=== PATIENT | female | born 1960 | race Caucasian/White ===

== ENCOUNTER 2020-10-04 11:54 | Emergency (ER) | payer BC, SELFPAY ==
[2020-10-04 12:22] VITALS: BP 147/65; PULSE 83; RESP 14; TEMP 36; O2SAT 95; BMI 34.7
--- NOTE | 2020-10-04 12:32 | HMH.EDUTC ---
[facility] Disposition Clinical Impression: Exposure to COVID-19 virus Sinusitis Qualifiers: Sinusitis location: unspecified location Chronicity: acute Recurrence: non-recurrent Qualified Code(s): J01.90 - Acute sinusitis, unspecified Disposition: Home, Self-Care Condition on Discharge: Good Instructions: Sinusitis, DI for Sinusitis, Preventing the Spread of Coronavirus Discharge Instructions Additional Instructions: Drink plenty of fluids. Take tylenol or ibuprofen for pain or fever. Take the medications as directed. Follow up with your regular doctor. GO TO THE ER FOR ANY WORSENING SYMPTOMS Prescriptions: predniSONE [Prednisone 20mg Tab] 20 mg PO BID 4 Days #8 tab Transmission Status: Received by [facility] Benzonatate [Tessalon Perle 100mg Cap] 100 mg PO TIDP PRN #30 cap PRN Reason: Cough Transmission Status: Received by [facility] Azithromycin [Z-Junior 250mg Tab*] 250 mg PO UD DOSE PK #6 tab Transmission Status: Received by [facility] Referrals: Judi Black APRN [Primary Care Provider] - Time of Disposition: 12:52 Medical Decision Making - Medical Records Medical records reviewed: No: I reviewed the patient's medical records. - Ortiz Inquiry Pt receiving controlled substance: No Vital Signs: 10/04/20 12:22 10/04/20 12:55 Temperature 96.8 F L 97.1 F L Temperature Source Tympanic Tympanic Pulse Rate 80 Pulse Rate [Right] 83 Respiratory Rate 14 16 Blood Pressure 142/46 H Blood Pressure [Right Arm] 147/65 H Blood Pressure Mean [Right Arm] 92 Blood Pressure Source [Right Arm] Automatic Cuff Blood Pressure Position Sitting Blood Pressure Position [Right Arm] Sitting 02 Sat by Pulse Oximetry 95 Oxygen Delivery Method Room Air Room Air [facility] HPI - General Stated complaint: Sinus,head ache,drainage Time Seen by Provider: 10/04/20 12:32 Mode of Arrival: Ambulatory Source of Information: Patient Limitations: No Limitations Description of Symptoms (Recalled from Triage Doc. by RN): pt thinks she has a sinus infection. it began two days ago, she has a sinus PICKENS and pressure. HEENT Symptoms (Recalled from RN notes): Yes (sinus PICKENS and pressure) Resp Symptoms (Recalled from RN notes): No Skin Symptoms (Recalled from RN notes): No MS Symptoms (Recalled from RN notes): No Functional Status (Recalled from RN notes): na - History of Present Illness Provider Complaint: She states that she has been having sinus congestion for the past 2 days. She has a scratchy sore throat and some mild upset gi symptoms also. She denies any chest pain, shortness of breath and chest tightness. She denies any known exposure to covid-19. - Related Data Previous Rx's Medication Instructions Recorded Azithromycin [Z-Junior 250mg Tab*] 250 mg PO UD DOSE PK #6 tab 10/04/20 Benzonatate [Tessalon Perle 100mg 100 mg PO TIDP PRN #30 cap 10/04/20 Cap] predniSONE [Prednisone 20mg 20 mg PO BID 4 Days #8 tab 10/04/20 Tab] Allergies Allergy/AdvReac Type Severity Reaction Status Date / Time amoxicillin Allergy Verified 10/04/20 12:26 Penicillins Allergy Verified 10/04/20 12:26 - Worker's Comp Is this a Worker's Comp case?: No [facility] History - Hepatitis A Screen Drug use history?: No High risk sexual behaviors?: No History of sexually transmitted infection?: No Currently employed?: No Childcare worker?: No Do you have indoor plumbing?: Yes Do you have electricity?: Yes Attestation statement:: This patient has been screened for Hepatitis A risk factors. I have reviewed the patient's past medical history: Yes ROS Obtained: Yes All systems reviewed & no additional complaints - Constitutional Constitutional: Reports as per HPI - Eyes Eyes: Denies eye discharge - ENT Ears, Nose, Mouth, and Throat: Reports as per HPI Physical Exam - General General appearance: alert, in no apparent distress - Head Head exam: atraumatic, normocephalic, n
[2020-10-04 12:55] VITALS: BP 142/46; PULSE 80; RESP 16; TEMP 36.2
--- NOTE | 2020-10-04 16:41 | PC.NURSE ---
spoke with pt relaying that her covid results are positive.
== END 2020-10-04 13:06 | disposition home or self-care (01) ==
PROVIDERS: Emergency Provider Nurse Practitioner Family; PCP Nurse Practitioner Family
DX: U07.1 COVID-19 (principal); J01.90 Acute sinusitis, unspecified
CPT/HCPCS: 99202; G0463; U0003

== ENCOUNTER → 2021-12-05 14:10 | Outpatient (CLI) | payer BC, SELFPAY ==
--- NOTE | 2021-12-05 14:11 | US_ITS ---
FINAL REPORT TECHNIQUE: Transvaginal ultrasound imaging of the pelvis was obtained. CLINICAL HISTORY: post menopausal bleeding FINDINGS: The uterus measures 5.7 x 3.0 x 5.4 cm. There are 2 uterine fibroids 1, in the mid uterus and the 2nd in the right lateral uterus. Mid fibroid is within the endometrium and is submucosal. The endometrium is thickened at 7 mm. Left ovary measures 1.7 cm. Right ovary measures 2.2 cm. There is a small right ovarian cyst. No free fluid is seen. IMPRESSION: Abnormally thickened endometrium. Recommend gynecologic evaluation. Reviewed, Interpreted and Dictated by Tmo Lawson MD Transcribed by Leah Knox Authenticated by Tom Lawson MD on 12/05/2021 04:17:42 PM [facility]
== END ==
PROVIDERS: PCP Nurse Practitioner Family; Visit Provider Obstetrics & Gynecology
DX: N95.0 Postmenopausal bleeding (principal)
CPT/HCPCS: 76830

== ENCOUNTER → 2021-12-24 10:15 | Outpatient (CLI) | payer BC, SELFPAY ==
[2021-12-24 10:54] LABS: Basophils # 0.1 K/mm3 (0-0.2); Basophils % 1.6 % (0.1-2.0); Eosinophils # 0.1 K/mm3 (0.0-0.4); Eosinophils % 1.7 % (0.1-12.0); Hematocrit 43.1 % (37.0-47.0); Hemoglobin 14.2 g/dL (12.2-16.2); Lymphocytes # 1.8 K/mm3 (0.7-4.5); Lymphocytes % 29.5 % (10-50); Mean Corpuscular Hemoglobin 31.2 pg (27.0-31.2); Mean Corpuscular Volume 94.4 fl (81-99); Mean Platelet Volume 8.5 fl (7.4-10.4); Monocytes # 0.4 K/mm3 (0.1-1.0); Monocytes % 6.1 % (1.7-9.3); Neutrophils # 3.8 K/mm3 (1.8-7.8); Neutrophils % 61.1 % (37.0-80.0); Platelet Count 301 K/mm3 (142-424); Red Blood Count 4.56 M/mm3 (4.20-5.40); Red Cell Distribution Width 13.6 % (11.5-17.5); White Blood Count 6.2 K/mm3 (4.8-10.8)
[2021-12-24 11:17] LABS: Alanine Aminotransferase 37 U/L (12-78); Albumin Level 4.5 g/dl (3.5-5.0); Albumin/Globulin Ratio 1.7 (1.1-1.8); Alkaline Phosphatase 59 U/L (38-126); Anion Gap 13.2 mEq/L (5-15); Aspartate Amino Transferase 34 U/L (14-36); Bilirubin,Total 0.5 mg/dl (0.2-1.3); Blood Urea Nitrogen 13 mg/dl (7-17); Carbon Dioxide 27 mmol/L (22.0-30.0); Chloride 108 mmol/L (98-107); Estimated Glomerular Filt Rate 63 ml/min (>60); GFR (African American) 77 ML/MIN (>60); Globulin 2.7 g/dL (1.3-3.2); Glucose 129 mg/dl (74-100); Potassium 4.2 mmoL/L (3.5-5.1); Sodium 144 mmol/L (136-145); Total Protein,Serum 7.2 g/dl (6.3-8.2)
[2021-12-24 11:18] LABS: HCG Qualitative, Serum Negative (Negative)
[2021-12-24 11:55] LABS: Amphetamine/Metha Screen,Urine Negative ng/ml (<1000); Benzodiazepines Screen,Urine Negative ng/ml (<200)
[2021-12-24 11:56] LABS: Barbiturates Screen,Urine Negative ng/ml (<200)
[2021-12-24 11:57] LABS: Cannabinoid Screen,Urine Negative ng/ml (<50); Cocaine Screen,Urine Negative ng/ml (<300)
[2021-12-24 11:58] LABS: Methadone Screen,Urine Negative ng/ml (<300)
[2021-12-24 11:59] LABS: Opiate Screen,Urine Negative ng/ml (<300); Phencyclidine Screen,Urine Negative ng/ml (<25)
== END ==
PROVIDERS: Visit Provider Obstetrics & Gynecology
DX: Z01.818 Encounter for other preprocedural examination (principal); Z11.52 Encounter for screening for COVID-19; N92.0 Excessive and frequent menstruation with regular cycle; N95.0 Postmenopausal bleeding
CPT/HCPCS: 36415; 80053; 80305; 84703; 85025; C9803; U0003; U0005

== ENCOUNTER 2021-12-26 06:15 | Day surgery (SDC) | payer BC, SELFPAY ==
[2021-12-23 10:05] VITALS: BMI 37.9
[2021-12-26] VITALS (12 sets, daily range): BP systolic 86–147; BP diastolic 44–82; PULSE 52–80; RESP 12–18; TEMP 36.6–43; O2SAT 93–98
[2021-12-26 07:11] LABS: POC Glucose,Bedside 109 (70-110)
--- NOTE | 2021-12-26 07:20 | HMH.ANESCL ---
[facility] Anesthesia Checklist - Patient Identification Patient Identification: Arm Band, Verbal (Name & ) - Structural Data Admitted From: Home Planned Operative Procedure/s: Hysteroscopy D&C Consent for Planned Operative Procedure(s) Verified: Yes Verified Documents: Surgical Consent - NPO Status Verified Time NPO: 00:00 - Chart Verification Results Verified: CBC - Additional verifications Anesthesia Reactions: No Hx Blood Transfusions: No Blood Transfusion Reaction: No - Airway Assessment C-Spine Mobility Assessed: Yes TMJ Mobility Assessed: Yes Dentition: Good Dentition - Neurological Assessment Level of Consciousness: Awake, Alert, Appropriate - Anesthesia Plan ASA Class: III Anesthesia Type: General [facility] History I have reviewed the patient's past medical history: Yes Medical History: Reports:: Diabetes Mellitus Type 2 Denies:: Cancer, Diabetes Mellitus Type 1, Internal Pacemaker, MRSA, Seizures *Have you ever received a pneumonia vaccine?: No *Have you received a flu vaccine this season?: No Other Medical History: Denies: Blood Transfusion Reaction Anesthesia experience/problems:: none Other Surgeries: No: Pacemaker Amputation: No Fractures: No - *Social History Last grade of school completed: Some college Smoking Status: Former smoker Alcohol Intake: never Substance Use Type: denies use *Occupational Status:: other, retired Housing: house Household Members: none *Travel in the last 8 weeks: None Family Hx:: Cancer, Diabetes, Heart Attack, Hypertension, Kidney Disease, Substance abuse, Alcoholism, Mental illness, Asthma
--- NOTE | 2021-12-26 09:13 | HMH.ANESI ---
[facility] Anesthesia Record Part I Intake, IV Amount: 800 Estimated blood loss (mL): 0 Urine output (mL): 0 Blood Pressure: 101/58 SaO2: 94 Pulse Rate: 57 Respiratory Rate: 12 Temperature: 98.1 F Patient is:: Awake, Stable Stable to PACU at:: 09:10
--- NOTE | 2021-12-26 10:51 | HMH.ANESII ---
[facility] Anesthesia Record Part II Discharge Time: 09:50 Destination: Surgical Day Care (OP Surgery) PACU nurse assessment reviewed?: Yes Patient Condition:: Good Anesthesia Complications:: None Swallowing reflex intact?: Yes Cyanosis?: No Blood Pressure: 109/57 Pulse Rate: 54 Temperature: 98.1 F Mental Status: Alert & Oriented Pain level:: 0 Nausea and/or vomitting:: None Intake, IV Amount: 0
--- NOTE | 2021-12-26 16:06 | P.OP_ITS ---
Date of procedure: 12/26/21 Pre-op Diagnosis:: 1. Post-menopausal bleeding 2. Thickened endometrium 3. Uterine fibroids Post-op Diagnosis:: same Procedure performed:: Myosure D&C hysteroscopy Surgeon:: Amy Reina MD OUTSIDE INSTALLER APPRENTICE:: Moises Giron Anesthesia: GETA Estimated blood loss (mL): 5 Operative findings:: 2 large cavitary masses in uterus; one anterior wall and one posterior wall Operative note:: The patient was taken to the OR and general anesthesia administered without difficulty. She was prepped/draped in lithotomy position. The cervix was dilated and hysteroscopic evaluation performed. 2 large masses were visualized within the endometrial cavity; the visual appearance of these masses were consistent with fibroids. The Myosure was used to sample the endometrium from all aspects of the cavity. Attempt was made to completely excise the masses but the solid nature of the tissue prescluded successful removal of the entire mass. Portions of the masses were removed for tissue diagnosis; all pathology specimens were sent together. Once this was completed, all instruments were removed from her uterus and vagina. She was taken out of lithotomy position, awakened from anesthesia and taken to the PACU in stable condition. All sponge, needle & instrument counts correct. EBL <10cc. Condition: stable Disposition: PACU Specimens:: endometrium Complications:: none
== END 2021-12-26 10:30 | disposition home or self-care (01) ==
LOC: OR 06:17
PROVIDERS: PCP Nurse Practitioner Family; Visit Provider Obstetrics & Gynecology
PROC: (CPT 58563; principal; 2021-12-26 08:00)
DX: N95.0 Postmenopausal bleeding (principal); R93.89 Abnormal findings on diagnostic imaging of other specified body structures; D25.9 Leiomyoma of uterus, unspecified; E11.9 Type 2 diabetes mellitus without complications; Z83.3 Family history of diabetes mellitus; Z82.49 Family history of ischemic heart disease and other diseases of the circulatory system; Z84.1 Family history of disorders of kidney and ureter; Z80.9 Family history of malignant neoplasm, unspecified; Z81.1 Family history of alcohol abuse and dependence; Z81.8 Family history of other mental and behavioral disorders; E66.9 Obesity, unspecified; Z68.37 Body mass index [BMI] 37.0-37.9, adult
CPT/HCPCS: 58563; 82962; 96374; J2405

== ENCOUNTER 2022-08-08 08:21 | Day surgery (SDC) | payer BC, SELFPAY ==
[2022-08-04 15:03] VITALS: BMI 38.2
[2022-08-08 08:55] VITALS: BP 118/77; PULSE 75; RESP 18; TEMP 36.5; O2SAT 95
[2022-08-08 09:13] LABS: POC Glucose,Bedside 105 (70-110)
[2022-08-08 09:49] VITALS: BP 117/63; PULSE 70; RESP 18; O2SAT 95
[2022-08-08 09:54] VITALS: BP 124/74; PULSE 70; RESP 18; O2SAT 99
[2022-08-08 09:59] VITALS: BP 119/73; PULSE 73; RESP 18; O2SAT 99
[2022-08-08 10:03] VITALS: BP 115/71; PULSE 66; RESP 18; O2SAT 99
[2022-08-08 10:15] VITALS: BP 126/74; PULSE 77; RESP 17; TEMP 36.5; O2SAT 94
== END 2022-08-08 10:18 | disposition home or self-care (01) ==
PROVIDERS: PCP Family Medicine; Visit Provider Ophthalmology
PROC: (CPT 66984; principal; 2022-08-08 10:30)
DX: E11.36 Type 2 diabetes mellitus with diabetic cataract (principal); H25.811 Combined forms of age-related cataract, right eye; Z79.899 Other long term (current) drug therapy
CPT/HCPCS: 66984; 82962; V2632

== ENCOUNTER → 2022-09-14 11:09 | Outpatient (CLI) | payer BC, SELFPAY ==
[2022-09-14 19:21] LABS: Creatinine,Urine Random 146 mg/dL (Not Estab.); Microalbumin/Creatinine Ratio 9.7
== END ==
PROVIDERS: PCP Family Medicine; Visit Provider Family Medicine
DX: E11.9 Type 2 diabetes mellitus without complications (principal); Z79.84 Long term (current) use of oral hypoglycemic drugs
CPT/HCPCS: 82043; 82570

== ENCOUNTER 2022-12-06 08:53 | Day surgery (SDC) | payer BC, SELFPAY ==
[2022-11-21 14:02] VITALS: BMI 38.2
[2022-12-06 09:32] VITALS: BP 148/80; PULSE 74; RESP 16; TEMP 36.3; O2SAT 94
[2022-12-06 09:45] LABS: POC Glucose,Bedside 113 (70-110)
--- NOTE | 2022-12-06 09:49 | P.PN_ITS ---
[facility] Disclaimer: The information contained in this section may have been updated after the patient was seen, as this information can be updated by other users. Medical History Allergies Diabetes mellitus Hyperlipidemia Hypertension Obesity, Class II, BMI 35-39.9 Polyp at cervical os Postmenopausal bleeding Thickened endometrium Uterine fibroid Surgical History History of hysteroscopy Family History Mother Hyperlipidemia Hypertension Father Cancer Sister Hyperlipidemia Hypertension Brother Cancer Other Family history of TIAs Family history of myocardial infarction Social History Smoking Status: Former smoker how long ago did patient quit smokin yrs alcohol intake: never substance use type: denies use current occupational status: retired Travel in the last 8 weeks: None household members: none housing: house lives independently: Yes marital status: single education level: vocational current occupational exposures/hazards: No caffeine: Yes do you feel safe at home: Yes victim of physical abuse: No victim of emotional abuse: No victim of sexual abuse: No would you like helpful sources: No [facility] Anesthesia Checklist Patient Identification Patient Identification: Arm Band and Verbal (Name & ) Structural Data Admitted From: Home Planned Operative Procedure/s: Colonoscopy Consent for Planned Operative Procedure(s) Verified: Yes NPO Status Verified Time NPO: 00:00 Additional verifications Anesthesia Reactions: No Hx Blood Transfusions: No Blood Transfusion Reaction: No Airway Assessment C-Spine Mobility Assessed: Yes TMJ Mobility Assessed: Yes Dentition: Good Dentition Neurological Assessment Level of Consciousness: Awake Hx Seizures: No Numbness or tingling in extremities: No Anesthesia Plan Anesthesia Risk discussed: Yes Anesthesia Plan: Verified ASA Class: III Anesthesia Type: MAC
[2022-12-06 10:25] VITALS: O2SAT 97
[2022-12-06 10:49] VITALS: BP 111/72; PULSE 76; RESP 18; TEMP 36.3; O2SAT 98
[2022-12-06 10:59] VITALS: BP 108/60; PULSE 79; RESP 16
[2022-12-06 11:09] VITALS: BP 101/61; PULSE 82; RESP 17
[2022-12-06 11:19] VITALS: BP 103/67; PULSE 73; RESP 16; TEMP 36.3; O2SAT 93
--- NOTE | 2022-12-06 12:18 | HMH.SCOPE ---
Procedure: Date: 12/06/22 Patient Date of :: 1960 Procedure Performed:: Colonoscopy Indications:: Positive cologuard test. The patient has a history of colon cancer in a first degree relative (brother) Performing Provider:: Sathya Hall MD Referring Provider:: Wilbert Branch MD Sedation:: See accounts receivable manager:: After placing the patient in the left lateral decubitus position, the colonoscopy was gently inserted into the rectum and under direct visualization advanced to the cecum which was identified by transillumination in the right lower quadrant, identification of the ileocecal valve, appendiceal orifice, and cecal strap. Color, texture, mucosa, and anatomy of the colon were carefully examined with the scope. Findings:: Anal canal: normal Rectum: internal hemorrhoids Sigmoid colon: two sessile polyps less than 5 mm in size. Removed with cold snare polypectomy. Descending colon: sessile polyp 5 mm in size and sessile polyp less than 5 mm in size. Removed with cold snare polypectomy Splenic flexure: normal Transverse colon: normal without polyps or inflammatory changes Hepatic flexure: normal Ascending colon: normal without polyps or inflammatory changes Cecum: normal Terminal ileum: not visualized Impression: Polyps of descending colon and sigmoid colon Recommendations:: Await pathology results Repeat colonoscopy in 3 years Complications:: None Estimated blood obtained (mL): 0
== END 2022-12-06 11:19 | disposition home or self-care (01) ==
PROVIDERS: PCP Family Medicine; Visit Provider Internal Medicine
PROC: 0DJD8ZZ Inspection of Lower Intestinal Tract, Via Natural or Artificial Opening Endoscopic (ICD-10-PCS; CPT 45378; principal; 2022-12-06 10:00)
DX: R19.5 Other fecal abnormalities (principal); Z80.0 Family history of malignant neoplasm of digestive organs; K64.8 Other hemorrhoids; D12.4 Benign neoplasm of descending colon; D12.5 Benign neoplasm of sigmoid colon; E11.9 Type 2 diabetes mellitus without complications; Z79.899 Other long term (current) drug therapy
CPT/HCPCS: 45378; 82962; J2704

== ENCOUNTER → 2022-12-26 10:33 | Outpatient (CLI) | payer BC, SELFPAY ==
--- NOTE | 2022-12-26 11:24 | US_ITS ---
PROCEDURE INFORMATION: Exam: US Right Breast, Complete MG Bilateral Diagnostic Breast Tomosynthesis MG Radiologist Consultation Exam date and time: 12/26/2022 10:41 AM Age: 62 years old Clinical indication: Right breast palpable lump; Abnormal findings on imaging; Additional info: Screening/palpable lump The mammogram predictive maintenance technician felt a palpable lump in the right upper outer quadrant at time of imaging. TECHNIQUE: Imaging protocol: Complete ultrasound of all four quadrants of the right breast and the retroareolar regions, including ultrasound of the axilla when performed. Bilateral Diagnostic tomosynthesis and 2D mammography including computer-aided detection (CAD) when performed. Unilateral or bilateral exam. COMPARISON: No relevant prior studies available. FINDINGS: MAMMOGRAPHY: Breast density: The breasts are heterogeneously dense, which may obscure small masses. Mass: There is a partially obscured, highly suspicious spiculated, irregular mass measuring at least 2.5 cm with associated architectural distortion in the posterior right upper outer quadrant with associated extensive, highly suspicious segmental pleomorphic calcifications. The calcifications extend to the central right breast, right upper inner quadrant and retroareolar region, spanning an area measuring up to 9 cm in AP dimension and 10 cm in transverse dimension. Architectural distortion: No suspicious distortion. Calcifications: See above. No suspicious left breast calcifications identified. Asymmetric density: None. Skin thickening: None. Axillary adenopathy: Extensive right axillary adenopathy is seen with conglomerate of abnormal lymph nodes versus solitary abnormal lymph node measuring at least 6 cm in craniocaudal dimension.. Probable abnormal 0.8 cm intramammary lymph node in the right axillary tail, anterior to the pectoralis muscle on MLO projection. ULTRASOUND: In right upper outer quadrant 10 o'clock position 3 cm from the nipple there is a highly suspicious, irregular spiculated hypoechoic solid mass with prominent posterior shadowing measuring 3.1 x 4.2 x 3.0 cm. Dominant abnormal right axillary lymph node measures up to the 4.8 cm in length with abnormal thickened cortex. IMPRESSION: Highly suspicious 4.2 cm spiculated solid mass in the 10 o'clock position of the right breast with associated architectural distortion, worrisome for primary breast malignancy in the region of the patient's palpable lump. Highly suspicious calcifications also extend from the mass to the central breast, retroareolar region and medial right breast. Right axillary adenopathy noted. Recommend right breast ultrasound-guided core needle biopsy of the 4.2 cm mass and dominant 0.8 cm abnormal right axillary lymph node. Also recommend post biopsy diagnostic mammogram to confirm biopsy clip placement at both biopsy sites. Dedicated breast MRI would also be helpful given extent of disease in the retroareolar region and multiple quadrants of the right breast. No mammographic evidence of malignancy in the left breast. ASSESSMENT: BI-RADS Category 5: Highly Suggestive of Malignancy
== END ==
PROVIDERS: PCP Family Medicine; Visit Provider Family Medicine
DX: R92.8 Other abnormal and inconclusive findings on diagnostic imaging of breast (principal)
CPT/HCPCS: 76641; 77062; 77066; G0279

== ENCOUNTER → 2023-01-08 09:51 | Outpatient (CLI) | payer BC, SELFPAY ==
--- NOTE | 2023-01-08 09:51 | US_ITS ---
FINAL REPORT CLINICAL HISTORY: right breast biopsy -- dr foster-- 1000, right axillary adenopathy FINDINGS: ULTRASOUND-GUIDED RIGHT AXILLARY CORE BIOPSY TECHNIQUE: Limited images were obtained to localize region of interest. The right axilla was prepped in a routine sterile fashion and locally anesthetized with 1% lidocaine. Standard written informed consent was obtained. The biopsy needle was positioned within the outer periphery of the lesion. A total of 2 passes were made with a 18 gauge core biopsy needle. A biopsy marker clip was deployed in satisfactory position. Postbiopsy mammogram showed postbiopsy changes with clip in satisfactory position. Procedure was well tolerated . CONCLUSION: 1. Technically successful ultrasound guided core biopsy of enlarged right axillary lymph node 2. Biopsy marker clip deployed Authenticated and ERN
--- NOTE | 2023-01-08 09:54 | MM_ITS ---
FINAL REPORT CLINICAL HISTORY: post us bx, abnormal mammogram FINDINGS: MAMMOGRAM RIGHT TECHNIQUE: Standard digital 2-D views COMPARISON: 12-26-22 DENSITY: There are scattered areas of fibroglandular density FINDINGS: Post biopsy marker clip is noted to be in satisfactory position within asymmetric density associated with extensive suspicious calcifications in the lateral right breast at 9-10:00. Biopsy marker clip is also noted within enlarged lymph nodes of the lower right axilla.. Postbiopsy changes are noted. IMPRESSION: Biopsy marker clips in good position RECOMMENDATION: Pending histopathology evaluation Authenticated and ERN
--- NOTE | 2023-01-08 10:50 | US_ITS ---
FINAL REPORT CLINICAL HISTORY: Right breast mass FINDINGS: ULTRASOUND-GUIDED RIGHT BREAST CORE BIOPSY TECHNIQUE: Limited images were obtained to localize region of interest. The right breast was prepped in a routine sterile fashion and locally anesthetized with 1% lidocaine. Standard written informed consent was obtained. The biopsy needle was positioned within the outer periphery of the lesion at 10:00. A total of 4 passes were made with a 16 gauge core biopsy needle. A biopsy marker clip was deployed in satisfactory position. Postbiopsy mammogram showed postbiopsy changes with clip in satisfactory position. Procedure was well tolerated . CONCLUSION: 1. Technically successful ultrasound guided core biopsy of right breast mass as above. 2. Biopsy marker clip deployed Authenticated and ERN
== END ==
LOC: RAD 09:51
PROVIDERS: PCP Family Medicine; Visit Provider Family Medicine
DX: R92.8 Other abnormal and inconclusive findings on diagnostic imaging of breast (principal); N63.10 Unspecified lump in the right breast, unspecified quadrant
CPT/HCPCS: 10005; 19083; 77065

== ENCOUNTER 2024-06-06 10:12 | Emergency (ER) | payer MEDICARE, SELFPAY ==
[2024-06-06 10:50] VITALS: BP 127/73; PULSE 100; RESP 20; TEMP 36.9; O2SAT 96; BMI 36.9
--- NOTE | 2024-06-06 11:30 | EXP.UTC ---
Discharge Plan Disposition Patient Disposition: Home, Self-Care Condition: Good Prescriptions Prescriptions: New azithromycin [Zithromax Z-Junior] 250 mg tablet See Rx Instructions .ROUTE .COMPLEX 5 Days Qty: 6 0RF Rx Instructions: For 250 mg dose pack: take 500 mg today (day 1), then 250 mg for 4 days (days 2-5) No Action cetirizine 10 mg tablet 10 mg PO DAILY Patient Comments: TAKE 1 TABLET BY MOUTH ONCE DAILY letrozole 2.5 mg tablet 2.5 mg PO DAILY Patient Comments: TAKE 1 TABLET BY MOUTH EVERY DAY albuterol sulfate 90 mcg/actuation HFA aerosol inhaler 2 puff inhalation Q6H PRN (Reason: shortness of breath or wheezing) Qty: 6.7 2RF ribociclib 600 mg/day (200 mg x 3) tablet 200 mg PO TID Rx Instructions: PO PER PKG DIR Ozempic 0.25 mg or 0.5 mg (2 mg/3 mL) pen injector 0.25 mg SQ WEEKLY Qty: 3 3RF Rx Instructions: for 4 weeks montelukast 10 mg tablet 10 mg PO PM 90 Days Qty: 90 1RF (DME) Accu-Chek Guide test strips Strip See Rx Instructions .ROUTE .COMPLEX Qty: 50 5RF Dose Instruction: USE 1 TEST STRIP ONCE DAILY FOR DIABETES Rx Instructions: USE 1 TEST STRIP ONCE DAILY FOR DIABETES (DME) lancets [Accu-Chek Fastclix Lancet Drum] Misc See Rx Instructions .ROUTE .MEDSUPPLY Qty: 200 5RF Rx Instructions: once a day (DME) pen needle, diabetic [BD Ultra-Fine Mini Pen Needle] 31 gauge x 3/16 needle See Rx Instructions .ROUTE .MEDSUPPLY Qty: 50 0RF Rx Instructions: need needles for her Ozempic injection metoprolol tartrate 100 mg tablet 100 mg PO DAILY Patient Comments: PLEASE SEE ATTACHED FOR DETAILED DIRECTIONS cholecalciferol (vitamin D3) [Vitamin D3] 25 mcg (1,000 unit) Capsule 25 mcg PO DAILY doxazosin 4 mg tablet 4 mg PO DAILY Rx Instructions: TAKE 1 TABLET BY MOUTH EVERY DAY ascorbic acid (vitamin C) 1,000 MG tablet 1,000 mg PO DAILY vitamin B complex 1 EACH tablet 1 each PO DAILY Referrals Follow up/Referrals: Jack Branch MD [Primary Care Provider] - See instructions Activity Restrictions/Add. Instructions Additional Instructions/Restrictions: *Monitor Temp, Over the counter Motrin or Tylenol as directed/as needed Tylenol every 4 hours and Motrin every 6 hours (as long as your family doctor has told you that you can take it) for fever or pain. and straight to ER if unable to lower temp less than 101.0 after medication given *Warm salt water gargles may help to soothe the throat *Throat Lozenges? *Warm fluids like tea with honey may help to soothe the throat? *Sleep elevated *Humidifier/Vaporizer Follow up IMMEDIATELY for new or worsening symptoms or no Noticeable improvement over the next 48-72 hours. 911 for difficulty breathing or swallowing Clinical Impressions Clinical Impression: Sinusitis Instructions Patient Instructions: DI for Sinusitis, Sinusitis Print Language Print Language: Belarusian Discharge ED Provider: Jackie Jiang [facility] General Stated complaint: sore throat, bilateral ear pain Mode of Arrival: Ambulatory Source of Information: Patient Limitations: No Limitations Time Seen by Provider: 06/06/24 11:30 Description of Symptoms (Recalled from Triage Doc. by RN): PATIENT C/O SINUS PRESSURE/DRAINAGE AND COUGH THAT STARTED YESTERDAY AFTERNOON HEENT Symptoms (Recalled from RN notes): Yes Resp Symptoms (Recalled from RN notes): Yes Skin Symptoms (Recalled from RN notes): No MS Symptoms (Recalled from RN notes): No Functional Status (Recalled from RN notes): WNL History of Present Illness Provider Complaint: Patient states that she has been having sinus problems on and off and pressure in her ears worse since yesterday states the pain and pressure is behind her eyes and feels like it does when she has sinus infection Related Data Home Medications ?Medication ?Instructions ?Recorded ?Confirmed cetirizine 10 mg tablet 10 mg PO DAILY Allergy symptoms 11/29/21 06/06/24 ascorbic acid (vitamin C) 1,000 mg 1,000 mg PO DAILY Supplement 12/26/21 06/06/24 tablet vitamin B complex 1 each PO DAILY Supplement 12/26/21 06/06/24 letrozole 2.5 mg tablet 2.5 mg PO DAILY 02/05/24 06/06/24 ribociclib 600 mg/day (200 mg x 3) 200 mg PO TID 03/10/24 06/06/24 tablets cholecalciferol (vitamin D3) 25 25 mcg PO DAILY 06/06/24 06/06/24 mcg (1,000 unit) capsule (Vitamin D3) doxazosin 4 mg tablet 4 mg PO DAILY 06/06/24 06/06/24 metoprolol tartrate 100 mg tablet 100 mg PO DAILY 06/06/24 06/06/24 Previous Rx's ?Medication ?Instructions ?Recorded montelukast 10 mg tablet 10 mg PO PM Allergy symptoms 90 02/29/24 days #90 tabs semaglutide 0.25 mg or 0.5 mg (2 0.25 mg (0.368 mL) SQ WEEKLY #3 mL 03/11/24 mg/3 mL) subcutaneous pen injector (Fierce & Frugal) blood sugar diagnostic (Accu-Chek #50 ea 05/01/24 Guide test strips) lancets (Accu-Chek Fastclix Lancet #200 ea 05/01/24 Drum) pen needle, diabetic 31 gauge x #50 ea 05/02/24 3/16 (BD Ultra-Fine Mini Pen Needle) albuterol sulfate 90 mcg/actuation 2 puff inhalation Q6H PRN 05/08/24 aerosol inhaler shortness of breath or wheezing #6.7 grams azithromycin 250 mg tablet See Rx Instructions PO .COMPLEX 5 06/06/24 (Zithromax Z-Junior) days #6 tabs Allergies Allergy/AdvReac Type Severity Reaction Status Date / Time amoxicillin Allergy Hives Verified 06/06/24 11:03 cephalexin [From Keflex] Allergy Rash Verified 06/06/24 11:03 Penicillins Allergy Hives Verified 06/06/24 11:03 doxycycline AdvReac Nausea Verified 05/08/24 14:23 Worker's Comp Is this a Worker's Comp case?: No [facility] Disclaimer: The information contained in this section may have been updated after the patient was seen, as this information can be updated by other users. Medical History Hypertension Hyperlipidemia Allergies Diabetes mellitus Thickened endometrium Uterine fibroid Polyp at cervical os Obesity, Class II, BMI 35-39.9 Postmenopausal bleeding Surgical History History of total mastectomy of right breast History of hysteroscopy Family History Mother Hyperlipidemia Hypertension Father Cancer lung Sister Hyperlipidemia Hypertension Brother Cancer colon cancer Other Family history of TIAs Family history of myocardial infarction Social History Smoking Status: Former smoker how long ago did patient quit smokin yrs alcohol intake: never substance use type: denies use current occupational status: retired Travel in the last 8 weeks: None household members: none housing: house lives independently: Yes marital status: single education level: vocational current occupational exposures/hazards: No caffeine: Yes do you feel safe at home: Yes victim of physical abuse: No victim of emotional abuse: No victim of sexual abuse: No would you like helpful sources: No ROS Obtained: Yes All systems reviewed & no additional complaints except as documented and Yes Systems reviewed as appropriate & no additional complaints except as documented Constitutional Constitutional: Reports system reviewed and no additional complaints, except as documented and Reports as per HPI ENT Ears, Nose, Mouth, and Throat: Reports system reviewed and no additional complaints, except as documented, Reports as per HPI, Reports sinus pain and Reports sinus pressure Cardiovascular Cardiovascular: Reports system reviewed and no additional complaints, except as documented and Reports as per HPI Respiratory Respiratory: Reports system reviewed and no additional complaints, except as documented and Reports as per HPI Gastrointestinal Gastrointestingal: Reports system reviewed and no additional complaints, except as documented and as per HPI Physical Exam General General appearance: alert and in no apparent distress Expanded ENT Exam TM/Canal exam: Right TM: erythema and Bilateral TM: bulging Nose exam: Present sinus tenderness Respiratory Respiratory exam: Present normal lung sounds bilaterally; Absent respiratory distress or wheezes Cardiovascular Cardiovascular exam: Present regular rate, normal rhythm and normal heart sounds Neurological Exam Neurological exam: Present alert, oriented X3 and normal gait Medical Decision Making Medical Records Screening: Per USPSTF and CDC recommendations, given the prevalence of disease in our region, it is our hospital?s policy to screen for HIV and viral Hepatitis for all patients aged 18 and over and those with ongoing risk factors. Ortiz Inquiry Pt receiving controlled substance: No Ortiz was queried for this patient: No Vital Signs: 06/06/24 10:50 Temperature 98.4 F Temperature Source Oral Pulse Rate [Left Brachial] 100 H Respiratory Rate 20 Blood Pressure [Left Arm] 127/73 Blood Pressure Mean [Left Arm] 91 Blood Pressure Source [Left Arm] Automatic Cuff Blood Pressure Position [Left Arm] Sitting 02 Sat by Pulse Oximetry 96 Oxygen Delivery Method Room Air Medical Decision Narrative: Patient states that she has taken azithromycin in the past without complications and reactions
[2024-06-06 11:50] VITALS: BP 127/73; PULSE 100; RESP 20; TEMP 36.9; O2SAT 96
== END 2024-06-06 11:53 | disposition home or self-care (01) ==
PROVIDERS: Emergency Provider Nurse Practitioner; PCP Family Medicine
DX: J01.90 Acute sinusitis, unspecified (principal)
CPT/HCPCS: 99213; G0381

== ENCOUNTER 2024-10-23 10:35 | Outpatient (CLI) | payer MEDICARE, SELFPAY ==
[2024-10-23 17:48] LABS: Basophils % 1.9 % (0.1-2.0); Eosinophils % 1.4 % (0.1-12.0); Hematocrit 36.7 % (37.0-47.0); Hemoglobin 12.3 g/dL (12.2-16.2); Lymphocytes # 0.5 K/mm3 (0.7-4.5); Lymphocytes % 21.9 % (10-50); Mean Corpuscular HGB Conc 33.5 g/dL (31.8-35.4); Mean Corpuscular Hemoglobin 34.2 pg (27.0-31.2); Mean Corpuscular Volume 101.9 fl (81-99); Mean Platelet Volume 9.8 fl (7.4-10.4); Monocytes # 0.2 K/mm3 (0.1-1.0); Monocytes % 11.4 % (1.7-9.3); Neutrophils # 1.3 K/mm3 (1.8-7.8); Neutrophils % 62.9 % (37.0-80.0); Platelet Count 148 K/mm3 (142-424); Red Cell Distribution Width 15.7 % (11.5-17.5); White Blood Count 2.1 K/mm3 (4.8-10.8)
[2024-10-23 18:06] LABS: Creatinine,Urine Random 125 mg/dL (Not Estab.)
[2024-10-23 18:23] LABS: Microalbumin < 6.000 mg/L (0-16.7)
[2024-10-23 18:56] LABS: Alanine Aminotransferase 24 U/L (12-78); Albumin Level 4.6 g/dl (3.5-5.0); Albumin/Globulin Ratio 1.7 (1.1-1.8); Alkaline Phosphatase 66 U/L (38-126); Anion Gap 13.3 mEq/L (5-15); Aspartate Amino Transferase 31 U/L (14-36); Bilirubin,Total 0.5 mg/dl (0.2-1.3); Blood Urea Nitrogen 14 mg/dl (7-17); Calcium 9.8 mg/dl (8.4-10.2); Carbon Dioxide 25 mmol/L (22.0-30.0); Chloride 107 mmol/L (98-107); Chol/HDL Ratio 2.5 (1-3.5); Cholesterol 169 mg/dl (140-200); Estimated Glomerular Filt Rate 56 ml/min (>60); GFR (African American) 67 ML/MIN (>60); Globulin 2.7 g/dL (1.3-3.2); Glucose 97 mg/dl (74-100); HDL Cholesterol 67 mg/dl (40-60); Potassium 4.3 mmoL/L (3.5-5.1); Sodium 141 mmol/L (136-145); Total Protein,Serum 7.3 g/dl (6.3-8.2); Triglycerides 99 mg/dl (30-150); VLDL Cholesterol 20 mg/dL (0-40)
[2024-10-23 19:07] LABS: Direct LDL Cholesterol 67.63 mg/dL (100-129)
[2024-10-23 19:23] LABS: Hemoglobin A1C 5.4 % (4.0-6.0)
[2024-10-23 19:55] LABS: HIV Combo NEGATIVE (Negative)
[2024-10-23 20:02] LABS: Hepatitis C Ab Qual. W/ RFX NEGATIVE (Negative)
== END 2024-10-23 23:59 | disposition home or self-care (01) ==
LOC: LAB.DROPOF 10-24 13:30
PROVIDERS: PCP Family Medicine; Visit Provider Family Medicine
DX: I10 Essential (primary) hypertension (principal); E11.9 Type 2 diabetes mellitus without complications; E78.5 Hyperlipidemia, unspecified; Z11.4 Encounter for screening for human immunodeficiency virus [HIV]; Z11.59 Encounter for screening for other viral diseases
CPT/HCPCS: 80053; 80061; 82043; 82570; 83036; 85025; 86803; 87389

== ENCOUNTER 2024-11-20 11:10 | Outpatient (CLI) | payer MEDICARE, SELFPAY ==
[2024-11-20 17:19] LABS: Basophils % 1.3 % (0.1-2.0); Eosinophils % 1.3 % (0.1-12.0); Hematocrit 35.8 % (37.0-47.0); Hemoglobin 12.4 g/dL (12.2-16.2); Lymphocytes # 0.5 K/mm3 (0.7-4.5); Lymphocytes % 22.5 % (10-50); Mean Corpuscular HGB Conc 34.6 g/dL (31.8-35.4); Mean Corpuscular Hemoglobin 34.9 pg (27.0-31.2); Mean Corpuscular Volume 100.8 fl (81-99); Monocytes # 0.3 K/mm3 (0.1-1.0); Monocytes % 13.7 % (1.7-9.3); Neutrophils # 1.4 K/mm3 (1.8-7.8); Neutrophils % 60.8 % (37.0-80.0); Platelet Count 151 K/mm3 (142-424); Red Blood Count 3.55 M/mm3 (4.20-5.40); Red Cell Distribution Width 15.1 % (11.5-17.5); White Blood Count 2.3 K/mm3 (4.8-10.8)
[2024-11-20 17:53] LABS: Chloride 107 mmol/L (98-107); Potassium 4.4 mmoL/L (3.5-5.1); Sodium 138 mmol/L (136-145)
[2024-11-20 17:56] LABS: Anion Gap 10.4 mEq/L (5-15); Blood Urea Nitrogen 13 mg/dl (7-17); Carbon Dioxide 25 mmol/L (22.0-30.0); Estimated Glomerular Filt Rate 50 ml/min (>60); GFR (African American) 60 ML/MIN (>60)
[2024-11-20 17:57] LABS: Calcium 10.2 mg/dl (8.4-10.2); Glucose 84 mg/dl (74-100)
[2024-11-20 23:02] LABS: Hemoglobin A1C 5.3 % (4.0-6.0)
== END 2024-11-20 23:59 | disposition home or self-care (01) ==
LOC: LAB.DROPOF 11-21 10:38
PROVIDERS: PCP Family Medicine; Visit Provider Family Medicine
DX: I10 Essential (primary) hypertension (principal); E11.9 Type 2 diabetes mellitus without complications
CPT/HCPCS: 80048; 83036; 85025

== ENCOUNTER 2024-12-24 19:51 | Outpatient (CLI) | payer MEDICARE, SELFPAY ==
--- OUTSIDE RECORDS SUMMARY | 2024-12-24 19:54 | XMS_ITS ---
Author Organization Unknown Medications Medication Instructions Effective Dates (start - stop) Status - 0109-83-23K12:00 :00.000+00: 00 - Completed - 1528-08-30M51:00 :00.000+00: 00 - Completed atorvastatin 10 MG Oral Tablet 2 519-05-74D54:00:00.000+00: 00 - Completed - 3972-50-98I18:00 :00.000+00: 00 - Completed - 0530-45-34D22:00 :00.000+00: 00 - Completed 24 HR metformin hydrochlorid e 500 MG Extended Release Oral Tablet [id number]:00:00.00 0+00: 00 - Completed {63 (ribociclib 200 MG Oral Tablet [Kisqali]) } Pack [Kisqali 600 MG Daily Dose Carton] [id number]:00:00.000+00: 00 - Completed - 4218-92-55G65:00 :00.000+00: 00 - Completed atorvastatin 10 MG Oral Tablet 2 682-21-00Y46:00:00.000+00: 00 - Completed 24 HR metformin hydrochlorid e 500 MG Extended Release Oral Tablet [id number]:00:00.00 0+00: 00 - Completed letrozole 2.5 MG Oral Tablet 10-31-22:00:00.000+00: 00 - Completed atorvastatin 10 MG Oral Tablet 2 454-58-86F24:00:00.000+00: 00 - Completed atorvastatin 10 MG Oral Tablet 2 170-88-84J71:00:00.000+00: 00 - Completed - 6439-13-09F38:00 :00.000+00: 00 - Completed - 1197-65-28V07:00 :00.000+00: 00 - Completed - 9371-01-42O13:00 :00.000+00: 00 - Completed - 6687-29-20Q52:00 :00.000+00: 00 - Completed - 2933-88-04I82:00 :00.000+00: 00 - Completed 24 HR metformin hydrochlorid e 500 MG Extended Release Oral Tablet 7922-64-73A24:00:00.00 0+00: 00 - Completed - 8326-78-23C34:00 :00.000+00: 00 - Completed ketorolac tromethamine 5 MG/ ML Ophthalmic Solution 1127-09-87W36:00:00.000+00: 00 - Completed doxazosin 4 MG Oral Tablet :00:00.000+00: 00 - Completed {21 (methylprednisolone 4 MG Oral Tablet) } Pack [id number]:00:00.000+00: 00 - Completed prednisolone acetate 10 MG/M L Ophthalmic Suspension 2615-75-00K71:00:00.000+00: 00 - Completed doxazosin 4 MG Oral Tablet :00:00.000+00: 00 - Completed montelukast 10 MG Oral Tablet 18-09-18:00:00.000+00: 00 - Completed montelukast 10 MG Oral Tablet 17-12-24:00:00.000+00: 00 - Completed triamcinolone acetonide 1 MG /ML Topical Cream 0168-01-80B15:00:00.000+00: 00 - Completed ofloxacin 3 MG/ML Ophthalmic Solution 0025-22-90Q99:00:00.000+00: 00 - Completed letrozole 2.5 MG Oral Tablet 10-31-27:00:00.000+00: 00 - Completed doxazosin 4 MG Oral Tablet :00:00.000+00: 00 - Completed montelukast 10 MG Oral Tablet 17-06-17:00:00.000+00: 00 - Completed doxazosin 4 MG Oral Tablet :00:00.000+00: 00 - Completed ondansetron 8 MG Oral Tablet 202 3-06-28T00:00:00.000+00: 00 - Completed sulfamethoxazole 800 MG / trimethoprim 160 MG Oral Tablet 6062-59-97Y92:00:00. 0+00: 00 - Completed sulfamethoxazole 800 MG / trimethoprim 160 MG Oral Tablet 9344-80-29L38:00:00.00 0+00: 00 - Completed polyethylene glycol 3350 236 000 MG / potassium chloride 2970 MG / sodium bicarbonate 6740 MG / sodium chloride 5860 MG / sodium sulfate 05841 MG Powder for Oral Solution [Gavilyte-G] 0160-15-79C25:00:00.000+00: 00 - Completed Patient Care team information Name Category Status Period Participants - - Proposed period not known -
[2024-12-24 20:24] LABS: Anion Gap 12.2 mEq/L (5-15); Blood Urea Nitrogen 11 mg/dl (7-17); Calcium 9.8 mg/dl (8.4-10.2); Carbon Dioxide 25 mmol/L (22.0-30.0); Chloride 110 mmol/L (98-107); Estimated Glomerular Filt Rate 56 ml/min (>60); GFR (African American) 67 ML/MIN (>60); Glucose 111 mg/dl (74-100); Potassium 4.2 mmoL/L (3.5-5.1); Sodium 143 mmol/L (136-145)
[2024-12-24 20:35] LABS: Basophils % 1.1 % (0.1-2.0); Eosinophils % 1.5 % (0.1-12.0); Hematocrit 35.6 % (37.0-47.0); Hemoglobin 12.1 g/dL (12.2-16.2); Lymphocytes # 0.7 K/mm3 (0.7-4.5); Lymphocytes % 26.9 % (10-50); Mean Corpuscular Hemoglobin 35.1 pg (27.0-31.2); Mean Corpuscular Volume 103.2 fl (81-99); Monocytes # 0.4 K/mm3 (0.1-1.0); Monocytes % 14.2 % (1.7-9.3); Neutrophils # 1.5 K/mm3 (1.8-7.8); Neutrophils % 55.6 % (37.0-80.0); Nucleated Red Blood Cells # 0 10^3/uL; Nucleated Red Blood Cells % 0 %; Platelet Count 170 K/mm3 (142-424); Red Blood Count 3.45 M/mm3 (4.20-5.40); Red Cell Distribution Width-SD 57.4 fL; White Blood Count 2.7 K/mm3 (4.8-10.8)
== END 2024-12-24 23:59 | disposition home or self-care (01) ==
LOC: LAB.DROPOF 19:52
PROVIDERS: PCP Family Medicine; Visit Provider Family Medicine
DX: I10 Essential (primary) hypertension (principal)
CPT/HCPCS: 80048; 85025

== ENCOUNTER 2025-03-24 11:00 | Outpatient (RCR) | payer MEDICARE, SELFPAY ==
--- NOTE | 2025-02-25 16:07 | HMH.PTOPEV ---
PT Outpatient Evaluation Rehab PT Outpatient Evaluation Start: 02/25/25 14:56 Freq: Status: Active Protocol: Document 02/25/25 14:56 MAYASERBRENDA (Rec: 02/25/25 16:05 PDESEROUX [id number]) E-signed By Khalif Montemayor, PT Outpatient Therapy Subjective History Subjective History Pt. is a 64 year old female who presents to [facility] in [place] for the outpatient initial evaluation this date() w/ c/o acute and intermittent LUE shldr. P!, weakness, and stiffness of traumatic onset that has progressively gotten worse since last (02/19/25 ). Pt. reports seeking medical attention once she wasn' t able to lift her LUE overhead. Pt. reports DOI was the middle of December where the JAI was slipping in the shower and landing on the LUE shldr. Pt. reports having some P! that was intermittent since DOI, but states she pushed it back and didn't seek medical attention at that time d/t taking care of her dying brother. Pt. reports going to the Doctor last secondary to waking up and not being able to life the LUE overhead. Pt. reports having recent radiographs of the LUE shldr. , but has not heard back from her MD regarding results. Pt. reports having some symptom relief w/ prescribed steroids. Current medications include Eliquis, Zyrtec, Montelukast, Vit. C and D, Doxazosin. PMH includes R- sided mastectomy secondary to breast cancer, DM-II, and pulmonary embolism. New diagnosis of No cancer in past 12 months? Chief Complaint Pain,Stiff,Clicks,Weakness Symptom Type Ache,Throb,Dull,Other Symptoms Relieved By Rest/Positioning,Ice,Prescription Meds Symptoms Aggravated Physical Activity,Lifting By Prior Functional None Limitations Current Functional Reaching,Lifting,Housework,Dressing,Desk Work/Reading, Limitations Driving,Recreation Activity Symptom Description Intermittent,Activity Dependent Level of pain today 0 (0-10) Pain scale - at its 0 best (0-10) Pain scale - at its 7 worst (0-10) Shoulder/Elbow Eval Shoulder Objective Measurements Palpation Tenderness tenderness shoulder left exam standard tenderness over the left SA bursa shoulder exam standard Shoulder Palpation Tenderness Findings Shoulder Palpation grade 4 +TTP Overall Comment Posture Shoulder Posture (L) Rounded,(L) Forward Sitting Position Shoulder Posture (L) Rounded,(L) Forward Standing Position Scapula Posture (L) Protracted Sitting Position Scapular Posture (L) Protracted Standing Position Flexibilty Deficits Latissmus Dorsi (L) Severe Tightness Muscle Length Pectoralis Minor (L) Severe Tightness Muscle Length Pectoralis Major (L) Severe Tightness Muscle Length Shoulder External (L) Moderate Tightness Rotators Muscle Length Shoulder Internal (L) Severe Tightness Rotators Muscle Length Supraspinatus Muscle (L) Severe Tightness Length Shoulder ROM Left Shoulder ROM Soft Tissue Tightness,Muscle Weakness,Muscle Tone,Pain Limitations Shoulder Abduction 100 Active Range of Motion (degrees) Shoulder Abduction 111 Passive Range of Motion (degrees) Shoulder Flexion 97 Active Range of Motion (degrees) Query Text: Shoulder Flexion 123 Passive Range of Motion (degrees) Shoulder External 31 Rotation Active Range of Motion ( degrees) Shoulder External 34 Rotation Passive Range of Motion ( degrees) Shoulder Internal WFL Rotation Active Range of Motion ( degrees) Shoulder Extension 60 Active Range of Motion (degrees) pain with active ROM left shoulder exam standard pain with passive left ROM shoulder exam standard decreased ROM left shoulder exam standard Shoulder MMT Shoulder Abduction 4- Good- Strength Grade Shoulder Extension 4- Good- Strength Grade Shoulder Flexion 4- Good- Strength Grade Shoulder External 4- Good- Rotation Strength Grade Shoulder Internal 4 Good Rotation Strength Grade Shoulder Strength Sitting Patient Testing Position Shoulder Muscle Tone Shoulder Flexor Severe Hypertonicity Muscle Tone Description Shoulder Extensors Severe Hypertonicity Muscle Tone Description Shoulder Lateral Severe Hypertonicity Rotator Muscle Tone Description Shoulder Special Tests impingement sign left present shoulder exam standard Shoulder Drop Arm Positive Left Test Shoulder Empty Can ( Positive Left Supraspinatus) Test Shoulder Amin- Positive Left [place] Impingement Test Elbow Objective Measurements Accessory Movements Left Shoulder Girdle Glenohumeral [place],Glenohumeral Supr [place] Accessory Movements that Elicit Symptoms Outpatient Therapy Assessment Impairments Problems/ Palpation Tenderness,Impaired Range of Motion,Impaired Impairmments Strength,Impaired Driving,Impaired Lifting,Impaired Dressing,Impaired Shower/Bathing,Impaired Household Care,Impaired Recreational Activities,Impaired Work Activities,Subjective C/O Pain,Impaired Self Care/Self Management Prognosis Rehab Potential Good Comment w/ HEP compliancy Clinical Impression Consistent with Yes Diagnosis Consistent with P! ALISHA caruso. from injury Additional details: s/s w/ LUE shldr. RC strain Short Term Goals Number of Weeks 2 Decreased Palpation Yes: grade 2 +TTP Tenderness Decrease Subjective Yes: worse:5/10 C/O Pain Patient to be Ind w/ Yes HEP Customer Success Representative Goals Number of Weeks 4-6 Decreased Palpation Yes: grade 1 +TTP Tenderness Increase Range of Yes: LUE shldr. A/PROM WFL grossly Motion Increase Strength Yes: 4+ to 5/5 LUE shldr. MMT scores grossly Increase Ability to Yes Drive/Ride in Car Restore Ability to Yes Lift Objects Overhead Improve Ability to Yes Dress Self Improve Ability to Yes Shower/Bathe Self Improve Ability For Yes Household Care Improve Tolerance to Yes: Pt. will return to moving packing boxes and Work Activities furniture w/ LUE w/o difficulty Improve Quick Dash Yes Score Decrease Subjective Yes: worse:1-10/06 C/O Pain Patient to be Ind w/ Yes Advanced HEP Outpatient Therapy Plan of Care Treatment Plan May Include Therapeutic Exercise Yes Including Home Exercise Program Manual Therapy Yes Techniques Neuromuscular Re- Yes education Therapeutic Yes Activities to Return to Previous Functional/Work Level ADL/Self Care Yes Education Thermal Modalities Yes Electrical Yes Stimulation Ultrasound/ Yes Phonophoresis Iontophoresis Yes Vasopneumatic Yes Compression Pump Massage Yes Eval/Re-Eval Yes Frequency Times per week 2 Duration Number of Weeks 4-6 Addendums This patient is a No candidate for social or vocational rehab ? Patient/Guardian Yes verbally acknowledges understanding of treatment program and consents to further treatment? Patient/Guardian Yes verbally acknowledges understanding of diagnosis, prognosis and goals for treatment? Eval Complexity PT Charges 55167 - Low Complexity PHYSICIAN CERTIFICATION: I certify the specified therapy services for Elizabeth Choe are required, authorized, and reviewed every 30 days.
== END 2025-03-24 23:59 | disposition home or self-care (01) ==
LOC: PT.CARL 11:00
PROVIDERS: Visit Provider Nurse Practitioner Family
DX: S49.92XA Unspecified injury of left shoulder and upper arm, initial encounter (principal)
CPT/HCPCS: 97110; 97140; 97161; 97530

== ENCOUNTER 2025-04-16 11:00 | Outpatient (RCR) | payer MEDICARE, SELFPAY | END 2025-04-16 23:59 | disposition home or self-care (01) | LOC: PT.CARL 11:00 | PROVIDERS: Visit Provider Nurse Practitioner Family | DX: S49.92XA Unspecified injury of left shoulder and upper arm, initial encounter (principal) | CPT/HCPCS: 97110; 97140 ==